=== PATIENT | male | born 2000 | race Caucasian/White ===

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

== ENCOUNTER 2025-02-20 10:35 | Emergency (ER) | payer OTHER ==
[~2025-02-20] VITALS: Ht 182.9 cm; Wt 113.4 kg
[~2025-02-20 10:35] MED LIST changes: +IBUP800 PO; +ONDA4ODT MM; +Protonix40 MG PO
[2025-02-20 11:06] VITALS: BP 138/81
[2025-02-20] MEDS ORDERED: HYDR1TAB94 PO (11:13)
[2025-02-20] MEDS ORDERED: AMOX500 PO (11:13)
== END 2025-02-20 11:14 | disposition home or self-care (01) ==
LOC: ER 10:35
DX: K04.7 Periapical abscess without sinus (principal); F17.200 Nicotine dependence, unspecified, uncomplicated; Z79.1 Long term (current) use of non-steroidal anti-inflammatories (NSAID); Z88.0 Allergy status to penicillin; Z88.5 Allergy status to narcotic agent; Z91.041 Radiographic dye allergy status
CPT/HCPCS: 99283

== ENCOUNTER 2025-03-13 08:23 | Emergency (ER) | payer OTHER ==
[~2025-03-13] VITALS: Ht 182.9 cm; Wt 81.7 kg
[~2025-03-13 08:23] MED LIST changes: +AMOX500 PO; +HYDR1TAB94 PO
[2025-03-13 08:38] VITALS: BP 135/94
[2025-03-13] MEDS ORDERED: Dexamethasone Sod Phos 10 MG/ML 1ML VIAL PO ONE (09:35)
[2025-03-13] MEDS ORDERED: IBUP800 PO (09:40)
[2025-03-13] MEDS ORDERED: ACET500 PO (09:40)
[2025-03-13] MEDS ORDERED: Clindamycin HC150 MG PO (09:40)
== END 2025-03-13 09:55 | disposition home or self-care (01) ==
LOC: ER 08:23
DX: K04.7 Periapical abscess without sinus (principal); K02.9 Dental caries, unspecified; K05.10 Chronic gingivitis, plaque induced; F17.210 Nicotine dependence, cigarettes, uncomplicated; Z88.0 Allergy status to penicillin; Z88.5 Allergy status to narcotic agent; Z91.041 Radiographic dye allergy status
CPT/HCPCS: 41800; 99282-25; J1100